=== PATIENT | male | born 1995 | race Caucasian/White ===

== ENCOUNTER 2020-06-27 17:16 | Emergency (ER) | payer OTHER, SELFPAY ==
[2020-06-27 17:18] VITALS: BP 157/102; PULSE 86; RESP 15; TEMP 36.2; O2SAT 99; BMI 30.9
--- NOTE | 2020-06-27 17:27 | ED.VIS.GEN ---
History of Present Illness Chief Complaint: General Illness Informant: Patient Onset: Weeks Maximum Severity: Mild Narrative: The patient reports a week ago he was exposed to a coworker who sits next to him in a vehicle who has Covid since that time he cough and shortness of breath that seem to intensify over the last few days. He has had no nausea vomiting or fever he has asthma is well controlled, he presents concerned that he has Covid He is otherwise executing all of his daily activities without issues Past Medical History - Allergies and Home Meds Allergies/Adverse Reactions: Allergies No Known Allergies Allergy (Verified 06/27/20 17:17) Past Medical History: - Review of Systems ROS: - Asthma General: Denies: Chills, Fever, Sweats Eyes: Denies: Visual changes - bilaterally, Diplopia ENT: Denies: Rhinorrhea, Sore throat Cardiovascular: Denies: Chest pain, Palpitations Respiratory: Reports: Dyspnea, Cough. Denies: Dyspnea on exertion Gastrointestinal: Denies: Abdominal pain, Nausea, Vomiting, Diarrhea, Melena, Hematochezia Genitourinary: Denies: Dysuria, Hematuria, Frequency Musculoskeletal: Denies: Back pain, Extremity Pain Skin: Denies: Rash, Wounds Neurological: Denies: Headache, Weakness, Numbness Physical Exam Vital Signs/Narrative: Vital Signs Temp Pulse Resp BP Pulse Ox 06/27/20 17:18 97.2 F L 86 15 157/102 H 99 General: Well nourished, Well developed, No Acute Distress Head: Normocephalic, Atraumatic Eyes: Perrl, EOMI ENT: Moist mucous membranes, No rhinorrhea Neck: Supple, Nontender Cardiovascular: Regular rate, Regular rhythm, No murmurs Respiratory: No distress, CTA bilaterally, Chest nontender Abdomen: Soft, Nontender, Nondistended, Normal bowel sounds Back: Nontender, Normal Inspection Extremities: Nontender, No edema Skin: Normal color, No rash Neurological: Alert, Oriented x3, Cranial nerves II-XII grossly intact, Normal Strength, Normal Sensation Psychological: Normal affect, Normal Mood Diagnostic/Tx/Re-eval - Medical Decision Making The patient was exposed about a week ago he has been ill with cough chest congestion since Thursday he is concerned he has Covid he is able to execute all of his daily activities his vital signs are unremarkable his lungs are clear he is awake and alert he is in no distress he would like to be tested for coronavirus given all the above chest x-rays obtained coronavirus screen The patient's chest x-ray is unremarkable he understands all the above he will follow the Covid outpatient management protocol follow-up with outpatient providers return for change in symptoms please note he remains completely asymptomatic here resting company in bed no distress other than the cough that is nonproductive Home stable Final impression cough, concern for COVID-19 ED Disposition - Plan for ED Patient: Diagnosis: Cough concern for COVID-19 Instructions: ED Upper Resp Infec No Abx Tx Prescriptions: Albuterol Inhaler [Ventolin Hfa] 1 - 2 puff INHALATION Q4H PRN PRN #1 inhaler PRN Reason: Wheezing Prescription Printed Referrals: Care Physician,No Primary [Primary Care Provider] - Bridgette Zuniga [NON-STAFF] -
--- NOTE | 2020-06-27 17:45 | RAD_ITS ---
STUDY: X-RAY CHEST REASON FOR EXAM: Male, 25 years old. SORE THROAT AND CHEST PAIN TECHNIQUE: Frontal and lateral views of the chest. COMPARISON: None. FINDINGS: The lungs are clear and expanded. There is no demonstrated pleural abnormality. Normal size heart. Normal mediastinum and geetha. Normal visualized pulmonary arteries. Normal visualized aortic arch and descending thoracic aorta. There are diffuse degenerative changes of the visualized thoracic spine. Deformities are seen of the mid thoracic spine, likely chronic. Normal visualized ribs, clavicles, and shoulders. There is no demonstrated abnormality of the visualized soft tissue structures of the upper abdomen. RAD/Chest PA and Lateral IMPRESSION: No definite acute or significant abnormality seen. Electronically Signed: Renny Burton MD at 18:09 EST , Service support ,
[2020-06-27 19:18] VITALS: BP 108/62; PULSE 74; RESP 15; O2SAT 100
== END 2020-06-27 19:19 | disposition home or self-care (01) ==
LOC: ED 17:43
PROVIDERS: Emergency Provider Emergency Medicine
DX: R05 Cough (principal)
CPT/HCPCS: 71046; 87635; 99282; U0003